=== PATIENT | female | born 1940 | race Caucasian/White ===

== ENCOUNTER 2016-02-15 13:47 | Inpatient (IN) ==
--- NOTE | 2016-02-15 17:07 | Internal Med History&Physical ---
<Ritu Minor - Last Filed: 02/15/16 17:20> Date of Encounter: 02/15/16 Time of Encounter: 16:30 Assessment and Plan (1) Elevated troponin Current visit: No Status: Acute - Troponin 0.05 at [facility]. - No significant ischemic change noted on EKG from [facility] and repeated one here. - Doubt ACS given lack of chest pain/discomfort but patient does have risk factors including DM, HTN and HLD. - Repeated troponin at 0.08. - Continue to trend troponin. - Continue close monitoring including telemetry. (2) Hyperkalemia Current visit: Yes Status: Acute - K at 4.9 at [facility] ED. - Likely secondary to patient's K supplement at home. - Hold K supplement for now. - Continue to monitor. (3) Right leg weakness Current visit: Yes Status: Acute - Patient's difficulty to stand and ambulate is likely mechanical given her lower extremity disparity in the setting of morbid obesity. - Less likely stroke/TIA given lack of other neurological deficit and negative head CT. - PT/OT to evaluate and treat. - Social service consult for discharge planning/possible placement. (4) Diabetes Current visit: No Status: Chronic - insulin sliding scale. Qualifiers: Diabetes mellitus type: type 2 Diabetes mellitus complication status: with hyperglycemia Diabetes mellitus fdc insulin use: with fdc use Qualified Code(s): E11.65 - Type 2 diabetes mellitus with hyperglycemia; Z79.4 - adjunct faculty for medical terminology (current) use of insulin (5) Obesity, morbid, BMI 50 or higher Current visit: No Status: Chronic - BMI 59. (6) DVT prophylaxis Current visit: Yes Status: Acute - SQ heparin. Internal Medicine - H&P: HPI Chief complaint: Right lower extremity weakness Admitted From: Emergency Dept Plans for Post Hospital Care: Home History of present illness: Ms. Giang is a 75 yo female with PMH of DM, HLD, gout and history of right femur fracture s/p right distal femoral replacement removal of hardware right proximal tibia in May 2015. Patient presented to [facility] ED for right lower extremity weakness starting when she woke up this morning. Patient feels her leg gives out and is unable to stand on it. CT head found no acute intracranial abnormality. Right hip & femor X-ray found no acute fracture. Patient is noted to have elevated troponin at 0.05 and admitted to [facility] for further evaluation. Upon my encounter, patient reports she was able to ambulate to bedside commode earlier in [facility] ED. Patient denies chest pain, palpitation, diaphoresis, lightheadedness, syncope, dyspnea, nausea/vomiting, abdominal pain, vision change, hearing change, numbness/tingling, other focal weakness. Patient denies history of stroke/TIA or cardiac disorder. Past Med Surg Social Fam HX - Past Medical History Medical history: arthritis, diabetes, hyperlipidemia, hypertension, other Psychiatric history: no psych history - Past Surgical History Surgical History: cholecystectomy, hysterectomy, orthopedic, other - Social History Smoking Status: Never smoker Smokeless Tobacco Status: No Alcohol use: none Drug use: none - Family History Mother Living Status: Hx Family Endocrine Disorder: Yes (Goiter) Father Living Status: Age at : 58 Hx Family Cardiac Disorders: Yes (massive AR) Internal Medicine - H&P: Meds Allopurinol [Zyloprim 100 MG] 100 mg PO DAILY 06/07/15 [History] Atorvastatin [Lipitor] 20 mg PO HS 06/07/15 [History] Cholecalciferol (Vitamin D3) [Vitamin D3] 2,000 unit PO DAILY 06/07/15 [History] Insulin Glargine [Lantus] 15 unit SQ BID 06/07/15 [History] Potassium Chloride [Klor-Con Sprinkle] 10 meq PO BID 06/07/15 [History] Furosemide [Lasix] 80 mg PO DAILY 06/08/15 [History] OxyCODONE Immed Rel [Roxicodone 5 MG] 10 mg PO Q6HR PRN #30 tablet 06/12/15 [Rx] Allergies No Known Allergies Allergy (Verified 06/07/15 19:21) All Systems PM: A 10-system review of systems was performed and is negative for pertinent findings except as documented above in the HPI. - Constitutional Constitutional: no anorexia, no chills, no fever(s) - EENT Eyes: no change in vision Ears: no decreased hearing Nose, mouth and throat: no dysphagia - Cardiovascular Cardiovascular ROS IM: edema (Chronic), no chest pain, no diaphoresis, no lightheadedness, no palpitations, no syncope - Respiratory Respiratory: cough (occasional), no dyspnea, no hemoptysis, no excessive phlegm production - Gastrointestinal Gastrointestinal: no abdominal pain, no hematochezia, no melena, no nausea, no vomiting - Genitourinary Genitourinary: no difficulty urinating, no dysuria, no hematuria - Musculoskeletal Musculoskeletal ROS IM: no arthralgias, no myalgias - Integumentary Integumentary IM: no pruritus, no rash - Neurological Neurological ROS: as per HPI, focal weakness (Right lower extremity), no numbness, no tingling - Hematologic/Lymphatic Hematologic/Lymphatic: no easy bleeding, no easy bruising - Constitutional Vitals: Temp Pulse Resp Pulse Ox 98.0 F 108 16 95 02/15/16 15:59 02/15/16 15:59 02/15/16 15:59 02/15/16 15:59 General appearance: Present: cooperative, A&O X 3, morbidly obese, no acute distress, answers questions appropriately - Head Head exam: Present: atraumatic, normocephalic - Eye Eye exam: Present: PERRL, conjuntiva pink, sclera anicteric - Neck Neck exam general surgery: Present: supple, trachea midline. Absent: lymphadenopathy - Respiratory Respiratory exam: Present: CTAB. Absent: accessory muscle use, rales, rhonchi, wheezes - Cardiovascular Cardiovascular exam: Present: RRR, +S1, +S2. Absent: diastolic murmur, gallop, rubs, systolic murmur - GI/Abdominal GI/Abdominal exam: Present: normal bowel sounds, soft, no peritoneal signs. Absent: distended, tenderness - Extremities Exam Extremities exam: Present: pedal edema (Mild bilateral non-pitting), warm, radial pulses palpable and symetrical. Absent: calf tenderness, cyanotic Additional comments: Right lower extremity is externally rotation and shorter than the left. - Neurological Exam Neurological exam: Present: CN II-XII intact, oriented X3, strengths equal and symetr throughout. Absent: pronater drift, facial droop, speech deficit Additional comments: Patient is unable to stand when asking patient to get off the bed for ambulation. - Skin Skin exam: Present: dry, intact, warm <Binu Chao - Last Filed: 02/15/16 18:27> Date of Encounter: 02/15/16 Internal Medicine - H&P: HPI History of present illness: Ms. Giang is a 75 year old female All Systems PM: A 10-system review of systems was performed and is negative for pertinent findings except as documented above in the HPI. - Constitutional Vitals: Temp Pulse Resp Pulse Ox 98.0 F 108 16 95 02/15/16 15:59 02/15/16 15:59 02/15/16 15:59 02/15/16 15:59 Internal Med - H&P Results - Labs Labs: Cardiac Enzymes 02/15/16 Range/Units 17:20 Troponin I 0.08 H* (0-0.03) ng/mL - Attending Attestation I have seen and examined this patient independently. I have discussed the case with the resident, Dr. Minor. I agree with the data gathering in the HPI, physical examination findings, assessment and plan as documented by the resident. Mild elevation of cardiac biomarkers without chest pain or ekg changes. Will mointor troponins. Right lower extremity weakness, will get PT OT eval. The plan of care was discussed in detail with the patient, she expressed understanding.
[2016-02-15] MEDS ORDERED: D5% in Water 1,000 ML IV PRN (17:44)
[2016-02-15] MEDS ORDERED: Dextrose Gel 15 GM PO PRN ×2 (17:44)
[2016-02-15] MEDS ORDERED: *HR* Dextrose 50 % in Water (Syg) 50 ML SYRINGE IVP PRN (17:44)
[2016-02-15] MEDS: Insulin LISPRO 300 UNITS/3 ML VIAL SQ SCH ×2 (19:17→21:10)
[2016-02-15] MEDS: Furosemide 40 MG TABLET PO SCH (19:35)
[2016-02-15] MEDS: Acetaminophen 325 MG TABLET PO PRN (21:10)
[2016-02-15] MEDS: *HR* Heparin 5,000 UNIT/ML VIAL SQ SCH (23:20)
[2016-02-16 04:39] LABS: Basophils # 0.1 K/mcL (0.0-0.2); Basophils % 0.5 %; Eosinophils # 0.1 K/mcL (0.0-0.6); Hemoglobin 11.8 g/dL (11.5-15.4); Immature Granulocytes % 0.5 % (0-4); Lymphocytes # 2.3 K/mcL (0.6-4.6); Lymphocytes % 20.6 %; Mean Corpuscular HGB Conc 31.9 g/dL (31.6-35.5); Mean Corpuscular Hemoglobin 29.1 pg (28.0-33.3); Mean Corpuscular Volume 91.1 fL (83.0-100.0); Mean Platelet Volume 9.2 fL (9.4-12.4); Monocytes # 0.6 K/mcL (0.0-1.3); Monocytes % 5.3 %; Neutrophils # 7.9 K/mcL (1.6-8.9); Platelet Count 260 K/mcL (140-400); Red Blood Count 4.06 M/mcL (3.82-4.97); Red Cell Distribution Width 14.4 % (11.5-14.5); Segmented Neutrophils % 72.1 %
[2016-02-16 04:52] LABS: BUN/Creatinine Ratio 12 (6-26); Blood Urea Nitrogen 12 mg/dL (7-20); Calcium 9.4 mg/dL (8.6-10.8); Carbon Dioxide 26 mEq/L (19-29); Chloride 106 mEq/L (98-109); Glucose 128 mg/dL (70-99); Osmolality,Calculated 291 (280-300); Potassium 3.7 mEq/L (3.5-4.5); Sodium 140 mEq/L (136-145); eGFR For African Americans > 60 (> 60); eGFR For Non-African Americans 52 (> 60)
[2016-02-16] MEDS: Furosemide 40 MG TABLET PO SCH (08:35)
[2016-02-16] MEDS: Ondansetron 4 MG/2 ML VIAL IVP PRN (08:35)
[2016-02-16] MEDS: *HR* Heparin 5,000 UNIT/ML VIAL SQ SCH ×3 (08:35→23:06)
[2016-02-16] MEDS: Insulin LISPRO 300 UNITS/3 ML VIAL SQ SCH ×4 (08:40→20:58)
[2016-02-16] MEDS ORDERED: Aspirin 81 MG TAB.CHEW PO SCH (09:00)
[2016-02-16] MEDS ORDERED: Cyanocobalamin (B-12) 1,000 MCG/ML VIAL IM ONE (12:49)
--- NOTE | 2016-02-16 16:31 | Internal Med Progress Note ---
Date of Encounter: 02/16/16 Time of Encounter: 16:35 - Assessment and plan (1) Right leg weakness Current Visit: Yes Status: Acute Assessment and plan: Discussed with staff , we tried to have two assist and walker to help patient to walk . Patient was unable to move her Right lower extremities will order MRI brain rule out any TIA or CVA. Was discussed with neurologist (2) Elevated troponin Current Visit: No Status: Acute Assessment and plan: mild elevation , No chest pain , continue current medications (3) Obesity, morbid, BMI 50 or higher Current Visit: No Status: Chronic (4) Physical deconditioning Current Visit: Yes Status: Acute Assessment and plan: PTOT. Check 25-hydroxy vitamin D and vitamin B12. Check TSH - Time Spent With Patient Greater than 35 minutes - Subjective Interval history: Patient stated that she was ambulating fine at home until yesterday. Patient stated that she continued to have weakness and decreased feeding of her right lower extremities. Cannot standard or carry any weight on having right lower extremity , patient denies any pain. Was to assist patient tried again she was able to stand with walking small steps - Constitutional Vitals: Temp Pulse Resp BP Pulse Ox 98.0 F 98 16 142/84 95 02/16/16 15:58 02/16/16 15:58 02/16/16 15:58 02/16/16 15:58 02/16/16 15:58 General appearance: Present: cooperative, A&O X 3, morbidly obese, no acute distress, answers questions appropriately - Head Head exam: Present: atraumatic, normocephalic - Eye Eye exam: Present: EOMI, conjuntiva pink, sclera anicteric. Absent: conjunctival injection - Respiratory Respiratory exam: Present: CTAB. Absent: accessory muscle use, rales, rhonchi, wheezes - Cardiovascular Cardiovascular exam: Present: RRR, +S1, +S2. Absent: diastolic murmur, gallop, rubs, systolic murmur - GI/Abdominal GI/Abdominal exam: Present: normal bowel sounds, soft, no peritoneal signs. Absent: distended, tenderness - Extremities Exam Extremities exam: Present: warm, radial pulses palpable and symetrical. Absent : calf tenderness, cyanotic, pedal edema - Neurological Exam Neurological exam: Present: CN II-XII intact, oriented X3, no focal deficits, strengths equal and symetr throughout. Absent: pronater drift, facial droop, speech deficit - Skin Skin exam: Present: dry, intact Internal Medicine: Result - Labs CBC & Chem 7: 02/16/16 04:06 02/16/16 04:06 Labs: Short CBC 02/16/16 Range/Units 04:06 WBC 11.0 (4.3-11.1) K/mcL Hgb 11.8 (11.5-15.4) g/dL Hct 37.0 (35.3-44.9) % Plt Count 260 (140-400) K/mcL Neutrophils # 7.9 (1.6-8.9) K/mcL BMP 02/16/16 04:06 Sodium 140 Potassium 3.7 D Chloride 106 Carbon Dioxide 26 BUN 12 Creatinine 1.03 Glucose 128 H Calcium 9.4 Cardiac Enzymes 02/15/16 02/15/16 Range/Units 17:20 21:39 Troponin I 0.08 H* 0.06 H* (0-0.03) ng/mL Consult Discharge Plan - Plan Referrals: Tani Galdamez [employer] CARE WORKER [Primary Care Provider] -
[2016-02-16] MEDS: Acetaminophen 325 MG TABLET PO PRN (16:59)
[2016-02-16] MEDS: Aspirin 325 MG TABLET PO SCH (17:05)
[2016-02-17] MEDS: Aspirin 325 MG TABLET PO SCH (08:04)
[2016-02-17] MEDS: Furosemide 40 MG TABLET PO SCH (08:04)
[2016-02-17] MEDS: *HR* Heparin 5,000 UNIT/ML VIAL SQ SCH ×3 (08:04→23:14)
[2016-02-17] MEDS: Insulin LISPRO 300 UNITS/3 ML VIAL SQ SCH ×4 (08:05→21:21)
--- NOTE | 2016-02-17 12:48 | Neurology - Consult Note ---
Date of Encounter: 02/17/16 Time of Encounter: 12:46 Assessment and Plan (1) Acute right hemiparesis Current Visit: Yes Status: Acute In lieu of the fact that the onset of the right lower extremity weakness was sudden without pain or sensory components along with the subtle weakness of the right upper extremity suggests to me that she may have had a left hemispheric lacunar infarct. Certainly she has risk factors which include hyperlipidemia and morbid obesity. She is already received aspirin 325 mg and the stroke protocol has been implemented. MRI scan of the brain is pending, however also like to obtain CTA of the neck, which is preferred to carotid Doppler study in lieu of her body habitus she will certainly need PT and OT after stabilization. Further recognitions will be made depending the outcome of the MRI scan. The documentation in the history of HPI and plan were at least partially created by [employer] recognition technology by Dr. Zaragoza. Errors in grammar, wording or other phrases may exist. If errors are found after the documentation signed, they will be addressed individually in the addendum section of this document when appropriate. History of Present Illness HPI: Ms. Giang is a 75 year old female who is being seen for neurologic consultation at the request of Dr. Phillips regarding acute onset of right lower extremity weakness. The weakness onset 2 days ago which would have been a Thursday. Weakness was present upon awakening from sleep that morning. She denies noticing any pain in the right leg or back. She relates that she has paresthesias intermittently in the right leg even prior to this event. She had not noticed any right arm weakness denied any speech difficulty 90 visual changes denied headache. Today she can move the leg however cannot raise it against gravity. She reports feeling well when she went to bed on night. She is morbidly obese, she is also poorly controlled diabetic. Her sugars range between 150 and 300. She is awake and alert she gives a lucid history she denies any confusion associated with this. She denies any previous episodes of this nature. Past Med Surg Social Fam HX - Past Medical History Medical history: arthritis, diabetes, hyperlipidemia, hypertension, other Psychiatric history: no psych history - Past Surgical History Surgical History: cholecystectomy, hysterectomy, orthopedic, other - Social History Smoking Status: Never smoker Smokeless Tobacco Status: No Alcohol use: none Drug use: none - Family History Mother Living Status: Hx Family Endocrine Disorder: Yes (Goiter) Father Living Status: Age at : 58 Hx Family Cardiac Disorders: Yes (massive [place]) Medications and Allergies Atorvastatin [Lipitor] 20 mg PO HS 06/07/15 [History] Cholecalciferol (Vitamin D3) [Vitamin D3] 2,000 unit PO DAILY 06/07/15 [History] Insulin Glargine [Lantus] 30 unit SQ BID 06/07/15 [History] Potassium Chloride [Klor-Con Sprinkle] 10 meq PO BID 06/07/15 [History] Furosemide [Lasix] 80 mg PO DAILY 06/08/15 [History] Metformin [Glucophage] 850 mg PO BID 02/16/16 [History] Multivit/Ca/Min/Fe/FA [Thera M Plus] 1 tab PO DAILY 02/16/16 [History] OxyCODONE/APAP 5/325 [Percocet 5/325 MG] 1 tab PO Q6HR PRN 02/16/16 [History] Ranitidine HCl [Acid Heavy Lift Rigger] 150 mg PO DAILY 02/16/16 [History] Allergies No Known Allergies Allergy (Verified 06/07/15 19:21) All Systems: A 10-system review of systems was performed and is negative for pertinent findings except as documented above in the HPI. Review of Systems: Gnosticism review of systems is consistent with a history of present illness and otherwise negative. Physical Examination - Vital Signs Vital Signs: Initial Vital Signs Temp Pulse Resp Pulse Ox 98.0 F 108 16 95 02/15/16 15:59 02/15/16 15:59 02/15/16 15:59 02/15/16 15:59 - Constitutional General appearance: other (Morbidly obese.) - Neurologic Sensorimotor examination: other (She does have decreased sensation to pinprick in a distal to proximal gradient symmetrically. There was no hemihypesthesia present.) Detailed motor examination: other (She has full power of the left upper and left lower extremities. She does have some weakness of the right deltoid right biceps and right triceps at about 4+/5 strength. She is unable to raise the right leg against gravity however she can bend the knee and dorsiflex and plantar flex the toes without gravity present. No involuntary movements or atrophy are present.) Results - Laboratory Findings CBC and BMP: 02/16/16 04:06 02/16/16 04:06 Abnormal lab findings: Abnormal lab results MPV 9.2 fL (9.4-12.4) L 02/16/16 04:06 Est GFR (Non-Af Amer) 52 (> 60) L 02/16/16 04:06 Glucose 128 mg/dL (70-99) H 02/16/16 04:06 POC Glucose 175 (58-89) H 02/16/16 20:26 Troponin I 0.06 ng/mL (0-0.03) H* 02/15/16 21:39 Consult Discharge Plan - Plan Referrals: Tani Galdamez, [employer]OE[employer]RIC POWERPLANT SUPERVISOR [Primary Care Provider] -
--- NOTE | 2016-02-17 18:36 | Internal Med Progress Note ---
Date of Encounter: 02/17/16 Time of Encounter: 18:30 - Assessment and plan (1) Right leg weakness Current Visit: Yes Status: Acute Assessment and plan: MRI brain no acute infarction CTA neck no significant stenosis appreciate neurologist input (2) Physical deconditioning Current Visit: Yes Status: Acute Assessment and plan: PT OT to ambulate. Unsafe to discharge home, need rehabilitation . Possible myositis will check Ck - Time Spent With Patient 25 - 35 minutes - Subjective Interval history: Patient stated that she started to move her lower extremity better, She had some sensation of her right lower extremities - Constitutional Vitals: Temp Pulse Resp BP Pulse Ox 97.6 F 96 15 149/62 94 L 02/17/16 15:22 02/17/16 15:22 02/17/16 15:22 02/17/16 15:22 02/17/16 15:22 General appearance: Present: cooperative, A&O X 3, morbidly obese, no acute distress, answers questions appropriately - Head Head exam: Present: atraumatic, normocephalic - Neck Neck exam general surgery: Present: supple, trachea midline. Absent: lymphadenopathy - Respiratory Respiratory exam: Present: decreased breath sounds. Absent: accessory muscle use, rales, rhonchi, wheezes - Cardiovascular Cardiovascular exam: Present: RRR, +S1, +S2. Absent: diastolic murmur, gallop, rubs, systolic murmur - GI/Abdominal GI/Abdominal exam: Present: normal bowel sounds, soft, no peritoneal signs. Absent: distended, tenderness - Extremities Exam Extremities exam: Present: warm. Absent: calf tenderness, cyanotic, pedal edema - Neurological Exam Neurological exam: Present: CN II-XII intact, oriented X3 (IMPROVEMENT OF sensation and movement of her right lower extremity with). Absent: facial droop , speech deficit - Skin Skin exam: Present: dry, intact Internal Medicine: Result - Labs CBC & Chem 7: 02/16/16 04:06 02/16/16 04:06 - Impressions Impressions Brain MRI 02/16/16 16:44 IMPRESSION: 1. No evidence of acute infarct or intracranial mass. 2. Severe chronic microvascular white matter ischemic disease noted both supra- and infratentorially. 3. Bilateral mastoid effusions. D/ / 02/17/2016 15:14:20 Yoni Oconnell MD / omega Interpreting Provider: Yoni Oconnell MD Lumbar Spine X-Ray 02/16/16 17:41 IMPRESSION: 1. No definite acute findings in lumbar spine. 2. Bony demineralization partially limits evaluation for fractures. 3. Predominately mild lumbar spine degenerative changes most severe at L2/L3. D/ / Saurabh Watson MD / Saurabh Watson MD Interpreting Provider: Saurabh Watson MD Neck CTA 02/17/16 13:01 IMPRESSION: No evidence of significant carotid stenosis. Moderate atherosclerosis involving the origin of the left vertebral artery. D/ / 02/17/2016 14:32:46 Rajeev Victoria MD / Annel Coy Interpreting Provider: Rajeev Victoria MD Consult Discharge Plan - Plan Referrals: Tani Galdamez, MARTINA [Primary Care Provider] -
[2016-02-17] MEDS: Acetaminophen 325 MG TABLET PO PRN (20:08)
[2016-02-18 05:54] LABS: Phosphorous 3.9 mg/dL (2.3-4.7)
[2016-02-18] MEDS: Insulin LISPRO 300 UNITS/3 ML VIAL SQ SCH ×4 (09:03→20:03)
[2016-02-18] MEDS: *HR* Heparin 5,000 UNIT/ML VIAL SQ SCH ×2 (09:06→17:10)
[2016-02-18] MEDS: Aspirin 325 MG TABLET PO SCH (09:06)
[2016-02-18] MEDS: Furosemide 40 MG TABLET PO SCH (09:06)
[2016-02-18] MEDS: Ondansetron 4 MG/2 ML VIAL IVP PRN (09:06)
[2016-02-18] MEDS: Acetaminophen 325 MG TABLET PO PRN ×2 (09:13→21:52)
--- NOTE | 2016-02-18 09:28 | ECHO - Doppler Report ---
Echo with Saline Contrast Name: Fidelina Giang Date of Study: 02/18/2016 Date: 1940 Ht: 56.0 in Medical Record#: [id number] Age: 75 Wt: 261.0 lb Gender: Female BSA: 1.99 Order #: [id number] Location: [facility] Room #: 3B44 Reading Physician: Zane Styles DO, DEEPIKA, EMMA ZULUAGA 3D Specialist: Brandon Borrego Ordering Physician: Saurabh Zaragoza DO Primary Physician: Ana M Galdamez CNP Indications: Transient Ischemic Attack Impressions: LVEF 60-65%. Normal LV chamber size, wall thickness and function. Mild left ventricular diastolic dysfunction. Normal right ventricular structure and function. No evidence of PFO with agitated saline contrast. No significant valvular dysfunction. No evidence of pulmonary hypertension. Left Ventricular Wall Motion: Rest Echo Findings All wall segments showed normal motion. Findings: Study Quality * Technically adequate exam. ECG Findings * Normal sinus rhythm. Left Ventricle * LVEF 60-65%. * Normal LV chamber size, wall thickness and function. * Mild left ventricular diastolic dysfunction. Right Ventricle * Normal right ventricular structure and function. Left Atrium * Mildly dilated left atrium. Right Atrium * Normal right atrial size. Interatrial Septum * No evidence of PFO with agitated saline contrast. Aortic Valve * Trileaflet aortic valve with normal function. * No aortic regurgitation. * No aortic stenosis. Mitral Valve * Normal mitral valve structure and function. * No mitral regurgitation. * No mitral stenosis. Tricuspid Valve * Normal tricuspid valve structure and function. * Trace tricuspid regurgitation. * No evidence of pulmonary hypertension. Pulmonic Valve * Normal pulmonic valve structure and function. * No pulmonic regurgitation. Aorta * Normally sized aortic root. Pericardium * The pericardium appears normal. IVC * Normal IVC dimensions and inspiratory collapse. Pulmonary Artery * Normal visualized portions of the main pulmonary artery. History Diabetes Hypercholesteremia Family History of CAD Contrast: Agitated saline 20 ml. Measurements: BP: 128/ 70 2D Normal Values RVIDd: 1.56 cm <2.7 cm IVSd: .94 cm 0.6 - 1.0 cm LVIDd: 4.68 cm 3.7 - 5.6 cm LVPWd: 1.04 cm 0.6 - 1.1 cm LVIDs: 3.47 cm 1.5 - 3.6 cm AO: 2.20 cm < 4.0 cm LA: 2.90 cm 2.0 - 4.0cm %FS: 25.90 cm >25 % LA volume: 36 Mitral Valve Peak E:.97 m/sec Peak A:1.06 m/sec E/A Ratio:0.9 Peak E' Lat Andrew:6.31 cm/s Peak E' Med Andrew:5.98 cm/s E/E' Lat Ratio:15.4 E/E' Med Ratio:16.2 Tricuspid Valve TV Regurg Peak Grad: 13.00mmHg TV Regurg Peak Andrew: 1.77m/sec Updated by Zane Styles DO, FACElissa, MARGARETH, EMMA on 02/18/2016 9:22:56 AM electronically signed on 02/18/2016 9:23:35 AM with status of Final Wall Motion Cazares: 1=Normal, 2=Hypokinesis, 3=Akinesis, 4=Dyskinesis, 5=Aneurysmal, 6=Hyperkinetic, X=Not Visualized (Blank)=Missing
--- NOTE | 2016-02-18 09:29 | Electrocardiograph Report ---
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
--- NOTE | 2016-02-18 10:15 | Neurology Progress Note ---
<Pernell Lunsford - Last Filed: 02/18/16 10:29> Date of Encounter: 02/18/16 Time of Encounter: 10:15 Assessment and Plan (1) Right leg weakness Current Visit: Yes Status: Acute Brain MRI: no evidence of acute infarct or intracranial mass. 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 Bilateral mastoid effusions. Echo: No evidence of PFO. Lumbar MRI pending. Subjective Principal diagnosis: RLE weakness Interval history: Patient reports no complaints overnight. Discussed results of Brain MRI and pending lumbar study. Objective - Constitutional Vitals: Temp Pulse Resp BP Pulse Ox 98.0 F 90 15 96/69 92 L 02/18/16 07:19 02/18/16 07:19 02/18/16 07:19 02/18/16 07:19 02/18/16 07:19 General appearance: Present: A&O X 3 - Head Head exam: Present: atraumatic, normal inspection, normocephalic - Eye Eye exam: Present: EOMI, normal appearance. Absent: conjunctival injection - Neurological Exam Sensorimotor examination: Present: intact, other (She does have decreased sensation to pinprick in a distal to proximal gradient symmetrically. There was no hemihypesthesia present.) Motor Examination: Present: other (Patient continues to have discernable weakness in the RUE - Deltoid, biceps and triceps 4/5 vs 5/5 in the contralateral upper extremity, Patient is unable to lift her RLE against gravity. ) Sensation intact: Present: intact Mental Status Examination: Present: awake, alert, oriented to person, oriented to place, oriented to time, follows commands appropriately Results - Laboratory Findings CBC and BMP: 02/16/16 04:06 02/16/16 04:06 Abnormal lab findings: Abnormal lab results MPV 9.2 fL (9.4-12.4) L 02/16/16 04:06 Est GFR (Non-Af Amer) 52 (> 60) L 02/16/16 04:06 Glucose 128 mg/dL (70-99) H 02/16/16 04:06 POC Glucose 180 (58-89) H 02/18/16 07:22 Uric Acid 11.1 mg/dL (2.6-6.0) H 02/18/16 04:07 Troponin I 0.06 ng/mL (0-0.03) H* 02/15/16 21:39 - Diagnostic Findings Additional findings: Echo: reviewed report Brain MRI: reviewed report Consult Discharge Plan - Plan Referrals: Tani Galdamez CNP [Primary Care Provider] - 02/28/16 5:00 pm <Saurabh Zaragoza - Last Filed: 02/18/16 16:32> Date of Encounter: 02/18/16 Time of Encounter: 16:20 Assessment and Plan (1) Acute right hemiparesis Current Visit: Yes Status: Acute I am still suspicious that she has had an acute left lacunar infarct resulting in the right upper and right lower extremity weakness. Certainly she has risk factors. At this point I would simply continue her antiplatelet therapy and aggressive management of her other risk factors. I would like to obtain the MRI of the lumbar spine which is yet pending. After this is completed, you may discharge her to a nursing care facility at your discretion. Unfortunately she will not be able to go home in this condition. Subjective Interval history: This patient still has weakness of the right lower extremity. I find out today that the weakness and external rotation of the right lower extremity is not new. In that case I am more comfortable with attributing this new weakness to more lacunar infarctions. She does have weakness of the right upper extremity as well. She states that she has not been able to lift the right leg for quite some time now even prior to this hospitalization. Objective - Constitutional Vitals: Temp Pulse Resp BP Pulse Ox 98.0 F 94 15 119/65 92 L 02/18/16 15:19 02/18/16 15:19 02/18/16 15:19 02/18/16 15:19 02/18/16 15:19 Results - Laboratory Findings CBC and BMP: 02/16/16 04:06 02/16/16 04:06 Abnormal lab findings: Abnormal lab results MPV 9.2 fL (9.4-12.4) L 02/16/16 04:06 Est GFR (Non-Af Amer) 52 (> 60) L 02/16/16 04:06 Glucose 128 mg/dL (70-99) H 02/16/16 04:06 POC Glucose 155 (58-89) H 02/18/16 11:33 Uric Acid 11.1 mg/dL (2.6-6.0) H 02/18/16 04:07 Troponin I 0.06 ng/mL (0-0.03) H* 02/15/16 21:39
--- NOTE | 2016-02-18 18:41 | Internal Med Progress Note ---
Date of Encounter: 02/18/16 Time of Encounter: 18:00 - Assessment and plan (1) Right leg weakness Current Visit: Yes Status: Acute Assessment and plan: MRI brain no acute infarction CTA neck no significant stenosis appreciate neurologist input . Awaiting MRI lumbar spine and possible discharge in next 24 hour need rehabilitation (2) Physical deconditioning Current Visit: Yes Status: Acute Assessment and plan: PT OT to ambulate. Unsafe to discharge home, need rehabilitation . no evidence of myositis (3) Gout Current Visit: Yes Status: Acute Assessment and plan: add Alloperinol Qualifiers: Gout site: unspecified site Gout etiology: unspecified cause Chronicity: unspecified Qualified Code(s): M10.9 - Gout, unspecified - Time Spent With Patient 25 - 35 minutes - Subjective Interval history: Patient stated that she was unable today to get up with physical therapy she tried twice. Patient complaining of nausea but no vomiting. Patient had bowel movement today. No shortness of breath. - Constitutional Vitals: Temp Pulse Resp BP Pulse Ox 98.0 F 94 15 119/65 92 L 02/18/16 15:19 02/18/16 15:19 02/18/16 15:19 02/18/16 15:19 02/18/16 15:19 General appearance: Present: cooperative, morbidly obese, no acute distress, answers questions appropriately - Head Head exam: Present: atraumatic, normocephalic - Respiratory Respiratory exam: Present: decreased breath sounds. Absent: accessory muscle use, rales, rhonchi, wheezes - Cardiovascular Cardiovascular exam: Present: RRR, +S1, +S2. Absent: diastolic murmur, gallop, rubs, systolic murmur - Extremities Exam Extremities exam: Present: warm. Absent: calf tenderness, cyanotic, pedal edema - Neurological Exam Neurological exam: Present: CN II-XII intact, motor sensory deficit (strength normal bilateral lower extremities but it was hrd for the patient to stand, hard to control her rt LL), oriented X3. Absent: pronater drift, facial droop, speech deficit Internal Medicine: Result - Labs CBC & Chem 7: 02/16/16 04:06 02/16/16 04:06 - Impressions Abnormal Lab Results 02/17/16 02/17/16 02/17/16 07:26 11:17 16:03 POC Glucose 152 H 171 H 153 H Uric Acid Phosphorus Magnesium Creatine Kinase 02/17/16 02/18/16 02/18/16 20:38 04:07 04:07 POC Glucose 163 H Uric Acid 11.1 H Phosphorus Magnesium Creatine Kinase 76 02/18/16 02/18/16 02/18/16 04:07 07:22 11:33 POC Glucose 180 H 155 H Uric Acid Phosphorus 3.9 Magnesium 2.0 Creatine Kinase 02/18/16 16:55 POC Glucose 134 H Uric Acid Phosphorus Magnesium Creatine Kinase Consult Discharge Plan - Plan Referrals: Tani Galdamez, [employer] FINISH[employer] [Primary Care Provider] - 02/28/16 5:00 pm
[2016-02-19] MEDS: *HR* Heparin 5,000 UNIT/ML VIAL SQ SCH ×3 (00:02→15:59)
[2016-02-19] MEDS: Insulin LISPRO 300 UNITS/3 ML VIAL SQ SCH ×4 (08:33→21:27)
[2016-02-19] MEDS: Furosemide 40 MG TABLET PO SCH (08:34)
[2016-02-19] MEDS: Aspirin 325 MG TABLET PO SCH (08:34)
--- NOTE | 2016-02-19 19:30 | Internal Med Progress Note ---
Date of Encounter: 02/19/16 Time of Encounter: 19:28 - Assessment and plan (1) Right leg weakness Current Visit: Yes Status: Acute Assessment and plan: MRI brain no acute infarction CTA neck no significant stenosis appreciate neurologist input . MRI lumbar spine no cord compression. Discussed with neurologist he recommended CAT scan abdomen and pelvis with contrast rule out any psoas muscle tumor or compression (2) Physical deconditioning Current Visit: Yes Status: Acute Assessment and plan: PT OT to ambulate. Unsafe to discharge home, possible discharge rehabilitation next a.m. if CAT scan abdomen is negative (3) Gout Current Visit: Yes Status: Acute Assessment and plan: continue Alloperinol Qualifiers: Gout site: unspecified site Gout etiology: unspecified cause Chronicity: unspecified Qualified Code(s): M10.9 - Gout, unspecified - Subjective Interval history: Patient stated that she had some improvement with standing and ambulating with physical therapy today - Constitutional Vitals: Temp Pulse Resp BP Pulse Ox 98.1 F 99 16 113/63 95 02/19/16 14:49 02/19/16 14:49 02/19/16 14:49 02/19/16 14:49 02/19/16 14:49 General appearance: Present: cooperative, morbidly obese, no acute distress, answers questions appropriately - Head Head exam: Present: atraumatic, normocephalic - Eye Eye exam: Present: conjuntiva pink, sclera anicteric - Neck Neck exam general surgery: Present: supple, trachea midline. Absent: lymphadenopathy - Respiratory Respiratory exam: Present: decreased breath sounds. Absent: accessory muscle use, rales, rhonchi, wheezes - Cardiovascular Cardiovascular exam: Present: RRR, +S1, +S2. Absent: diastolic murmur, gallop, rubs, systolic murmur - GI/Abdominal GI/Abdominal exam: Present: distended, normal bowel sounds, soft, no peritoneal signs. Absent: tenderness - Extremities Exam Extremities exam: Present: warm, radial pulses palpable and symetrical. Absent : calf tenderness, cyanotic, pedal edema - Neurological Exam Neurological exam: Present: CN II-XII intact, oriented X3. Absent: pronater drift, facial droop, speech deficit - Skin Skin exam: Present: dry, intact Internal Medicine: Result - Labs CBC & Chem 7: 12/31/16 04:06 02/16/16 04:06 - Impressions Impressions Lumbar Spine MRI 02/18/16 08:33 IMPRESSION: 1. Moderate central spinal canal narrowing at L2-L3 with moderate-severe left foraminal narrowing at this level. 2. Mild central spinal canal narrowing at L3-L4, and L4-L5. 3. Moderate-severe left, and moderate right foraminal narrowing at L4-L5. 4. Moderate-severe left foraminal narrowing at L2-L3. 5. No evidence of an acute fracture. D/ / 02/18/2016 21:55:30 Yoni Oconnell MD / arnaud Interpreting Provider: Yoni Oconnell MD Consult Discharge Plan - Plan Referrals: Tani Galdamez CNP [Primary Care Provider] - 02/28/16 5:00 pm
[2016-02-19] MEDS: Acetaminophen 325 MG TABLET PO PRN (21:26)
[2016-02-20] MEDS: *HR* Heparin 5,000 UNIT/ML VIAL SQ SCH ×2 (00:19→07:52)
[2016-02-20 07:32] VITALS: BP 165/92
[2016-02-20] MEDS: Insulin LISPRO 300 UNITS/3 ML VIAL SQ SCH (07:52)
--- NOTE | 2016-02-20 07:52 | Discharge Summary ---
Date of Encounter: 02/21/16 Time of Encounter: 07:40 - Discharge Diagnosis (1) Right leg weakness Priority: Primary Status: Acute (2) Physical deconditioning Priority: Secondary Status: Acute (3) Gout Priority: Secondary Status: Acute Qualifiers: Gout site: unspecified site Gout etiology: unspecified cause Chronicity: unspecified Qualified Code(s): M10.9 - Gout, unspecified - Discharge Medications Prescriptions: Acetaminophen [Tylenol] 650 mg PO Q6HR PRN #60 tablet PRN Reason: Mild Pain or fever Allopurinol [Zyloprim] 200 mg PO DAILY #90 tablet Cyanocobalamin (B-12) [Vitamin B12] 1,000 mcg PO DAILY #90 tablet Ergocalciferol (VITAMIN D2) [Drisdol (50,000 Unit)] 50,000 unit PO QWEEK #20 capsule Insulin LISPRO [HumaLOG] 0 units SQ TIDAC #3 vial Multivitamin [Multi-Day Vitamins] 1 each PO DAILY #90 tablet Thiamine HCl 250 mg PO DAILY #90 tablet Home Medications: Atorvastatin [Lipitor] 20 mg PO HS 06/07/15 [History] Insulin Glargine [Lantus] 30 unit SQ BID 06/07/15 [History] Potassium Chloride [Klor-Con Sprinkle] 10 meq PO BID 06/07/15 [History] Furosemide [Lasix] 80 mg PO DAILY 06/08/15 [History] Metformin [Glucophage] 850 mg PO BID 02/16/16 [History] Multivit/Ca/Min/Fe/FA [Thera M Plus] 1 tab PO DAILY 02/16/16 [History] OxyCODONE/APAP 5/325 [Percocet 5/325 MG] 1 tab PO Q6HR PRN 02/16/16 [History] Ranitidine HCl [Acid Coal Mill Operator] 150 mg PO DAILY 02/16/16 [History] Acetaminophen [Tylenol] 650 mg PO Q6HR PRN #60 tablet 02/20/16 [Rx] Allopurinol [Zyloprim] 200 mg PO DAILY #90 tablet 02/20/16 [Rx] Cyanocobalamin (B-12) [Vitamin B12] 1,000 mcg PO DAILY #90 tablet 02/20/16 [Rx] Ergocalciferol (VITAMIN D2) [Drisdol (50,000 Unit)] 50,000 unit PO QWEEK #20 capsule 02/20/16 [Rx] Insulin LISPRO [HumaLOG] 0 units SQ TIDAC #3 vial 02/20/16 [Rx] Multivitamin [Multi-Day Vitamins] 1 each PO DAILY #90 tablet 02/20/16 [Rx] Thiamine HCl 250 mg PO DAILY #90 tablet 02/20/16 [Rx] Allergies/Adverse Reactions: Allergies No Known Allergies Allergy (Verified 06/07/15 19:21) Procedures/tests Complete & Pending: Procedures Performed prior 72 hours Category Date Time Status CT abd pelvis w iv and oral [CT] Routine Cat Scan 02/19/16 20:[address] angio neck [CT] Stat Cat Scan 02/17/16 13:01 Completed MR lumbar spine wo con [MR] Routine MRI 02/18/16 08:33 Completed EV echocardiogram Routine Y 02/18/16 12:55 Completed Date of admission: 02/15/16 19:20 Primary care physician: Tani Galdamez CNP Consults: 02/18/16 18:44 Consult to Physical Medicine/Rehab [CONS] Routine Consulting Provider: Jordyn Berg Reason for Consult: Possible CVA, right lower extremity weakness Call Completed: No 02/15/16 16:42 Consult to Truck Driver Supervisor [CONS] Routine Reason for SW Consult: Patient will need to be transferred back to [place]. She lives in a facility for disabled individuals. 02/15/16 17:17 Consult to Occupational Therapy [CONS] Routine Comment: Evaluate, develop and implement POC Consult to Physical Therapy [CONS] Routine Comment: Evaluate, develop and implement POC 02/16/16 16:45 Consult to Neurology [CONS] Routine Consulting Provider: [facility] Reason for Consult: Lower extremites weakness Call Completed: Yes Discharging clinician: Mary Wood - Patient Status Disposition: Transfer SNF Condition: Fair Overall status at discharge: patient is not back to baseline - Discharge Instructions Follow Up With: Tani Galdamez CNP [Primary Care Provider] - 02/28/16 5:00 pm Additional Instructions: Follow-up with neurologist in 2-3 weeks - Diet and Activity Activity: ambulate only with your walker Diet: diabetic diet Hospital course: Ms. Giang is a 75 yo female with PMH of DM, HLD, gout and history of right femur fracture s/p right distal femoral replacement removal of hardware right proximal tibia in May 2015. Patient presented to [facility] ED for right lower extremity weakness starting when she woke up at AM. Patient was feeling her leg gives out and she is unable to stand on it. CT head found no acute intracranial abnormality. Right hip & femor X-ray found no acute fracture. Patient is noted to have elevated troponin at 0.05 and admitted to [facility] for further evaluation. Upon my encounter, patient reports she was able to ambulate to bedside commode earlier in [facility] ED. Patient denies chest pain, palpitation, diaphoresis, lightheadedness, syncope, dyspnea, nausea/vomiting, abdominal pain, vision change, hearing change, numbness/tingling, other focal weakness. Patient denies history of stroke/TIA or cardiac disorder. Extensive neurological workup done during hospitalization including MRI brain which showed no evidence of stroke, MRI lumbar spine no evidence of cord compression. CT scan abdomen and pelvis with contrast done rule out any psoas muscle tumor or intra-abdominal tumor causing pressure on psoas muscle and no evidence of psoas muscle tumor. Neurology was consulted, who recommended CTA neck which was negative for any significant carotid artery stenosis . Patient was placed on stroke protocol, continue aspirin 325 mg daily in addition to statin. On first 2 days it was very hard for patient to walk at all with physical therapy. Later patient was able to stand with ob gyn physician assistant and walking with walker. Patient had gout allopurinol was restarted. Pain medication was adjusted.Neurology stated the patient needs more physical therapy. Cardiac echo was done which show no evidence of any thrombus or congenital anomalies. During hospitalization stay patient denies any chest pain cardiac enzyme was flat no acute EKG changes, cardiac echo normal ejection fraction. Uric acid was ordered was 11.1, main contributing factor for her multiple joint pain. Her pre-albumin was low, vitamin B12 was borderline low, patient received vitamin B12 replacement. Patient discharged to [facility] for rehabilitation . The documentation in the history of HPI and plan were at least partially created by [employer] recognition technology by Dr. Zaragoza. Errors in grammar, wording or other phrases may exist. If errors are found after the documentation signed, they will be addressed individually in the addendum section of this document when appropriate. - Time Spent with Patient Total time spent providing and/or coordinating discharge services: Greater than 30 minutes - Constitutional Vitals: Temp Pulse Resp BP Pulse Ox 98.1 F 89 15 165/92 93 L 02/20/16 07:30 02/20/16 07:30 02/20/16 07:30 02/20/16 07:30 02/20/16 07:30 General appearance: Present: cooperative, morbidly obese, no acute distress, answers questions appropriately
[2016-02-20] MEDS: Furosemide 40 MG TABLET PO SCH (07:53)
[2016-02-20] MEDS: Aspirin 325 MG TABLET PO SCH (07:53)
--- NOTE | 2016-02-20 08:20 | Physician Discharge Referral ---
ExtendedCare Referral Info Transfer To: [facility] Provider in Charge after Transfer: Other Institutional Level of Care: Skilled - Diagnosis (1) Right leg weakness Priority: Primary Status: Acute (2) Physical deconditioning Priority: Secondary Status: Acute (3) Gout Priority: Secondary Status: Acute Prognosis: Good Aware of Diagnosis: Patient Aware of Prognosis: Patient - Transfer Medications Prescriptions: Acetaminophen [Tylenol] 650 mg PO Q6HR PRN #60 tablet PRN Reason: Mild Pain or fever Allopurinol [Zyloprim] 200 mg PO DAILY #90 tablet Cyanocobalamin (B-12) [Vitamin B12] 1,000 mcg PO DAILY #90 tablet Ergocalciferol (VITAMIN D2) [Drisdol (50,000 Unit)] 50,000 unit PO QWEEK #20 capsule Insulin LISPRO [HumaLOG] 0 units SQ TIDAC #3 vial Multivitamin [Multi-Day Vitamins] 1 each PO DAILY #90 tablet Thiamine HCl 250 mg PO DAILY #90 tablet Home Medications: Atorvastatin [Lipitor] 20 mg PO HS 06/07/15 [History] Insulin Glargine [Lantus] 30 unit SQ BID 06/07/15 [History] Potassium Chloride [Klor-Con Sprinkle] 10 meq PO BID 06/07/15 [History] Furosemide [Lasix] 80 mg PO DAILY 06/08/15 [History] Metformin [Glucophage] 850 mg PO BID 02/16/16 [History] Multivit/Ca/Min/Fe/FA [Thera M Plus] 1 tab PO DAILY 02/16/16 [History] OxyCODONE/APAP 5/325 [Percocet 5/325 MG] 1 tab PO Q6HR PRN 02/16/16 [History] Ranitidine HCl [Acid Publications Distribution Clerk] 150 mg PO DAILY 02/16/16 [History] Acetaminophen [Tylenol] 650 mg PO Q6HR PRN #60 tablet 02/20/16 [Rx] Allopurinol [Zyloprim] 200 mg PO DAILY #90 tablet 02/20/16 [Rx] Cyanocobalamin (B-12) [Vitamin B12] 1,000 mcg PO DAILY #90 tablet 02/20/16 [Rx] Ergocalciferol (VITAMIN D2) [Drisdol (50,000 Unit)] 50,000 unit PO QWEEK #20 capsule 02/20/16 [Rx] Insulin LISPRO [HumaLOG] 0 units SQ TIDAC #3 vial 02/20/16 [Rx] Multivitamin [Multi-Day Vitamins] 1 each PO DAILY #90 tablet 02/20/16 [Rx] Thiamine HCl 250 mg PO DAILY #90 tablet 02/20/16 [Rx] Allergies/Adverse Reactions: Allergies No Known Allergies Allergy (Verified 06/07/15 19:21) - Respiratory Orders None Smoking Cessation: Smoking cessation has been advised. For more information, call the [place] Tobacco Quit Line at 2-157-INJR-NOW. - Ancillary Orders May use pressure relief devices daily prn - Mobility Orders Ambulate - Rehabiliation Orders Rehab Potential: Good Rehab Orders: Evaluation for Physical Therapy, Evaluation for Occupational Therapy - Diet Orders Cardiac (Diabetic diet) CERTIFICATION: I certify that the transfer of the above named patient to an Extended Care Facility is necessary for the continuing treatment of the diagnosis listed. The above information is true and accurate reflection of patient's current condition. Confidential - Redisclosure prohibited without a patient's written consent.
[2016-02-20 09:00] LABS: Calcium 9.7 mg/dL (8.6-10.8); Potassium 3.6 mEq/L (3.5-4.5)
== END 2016-02-20 11:03 | DRG 948 ==
LOC: 3BNU
PROVIDERS: ADMIT Internal Medicine; ATTEND Internal Medicine